=== PATIENT | female | born 1990 | race Caucasian/White ===

== ENCOUNTER 2019-09-26 23:12 | Emergency (ER) | payer MEDICAID ==
[~2019-09-26] VITALS: Ht 172.7 cm; Wt 65.9 kg
[2019-09-26 23:14] VITALS: BP 122/92
== END 2019-09-26 23:43 | disposition left against medical advice (07) ==
LOC: EMS 23:12
DX: F17.210 Nicotine dependence, cigarettes, uncomplicated (principal); Z53.21 Procedure and treatment not carried out due to patient leaving prior to being seen by health care provider

== ENCOUNTER 2020-03-23 09:51 | Emergency (ER) | payer MEDICAID ==
[~2020-03-23] VITALS: Ht 172.7 cm; Wt 68.2 kg
[2020-03-23 11:30] VITALS: BP 131/84
== END 2020-03-23 11:39 | disposition home or self-care (01) ==
LOC: EMS 09:59
DX: T16.1XXA Foreign body in right ear, initial encounter (principal); H60.91 Unspecified otitis externa, right ear; F12.90 Cannabis use, unspecified, uncomplicated; F19.90 Other psychoactive substance use, unspecified, uncomplicated; F17.210 Nicotine dependence, cigarettes, uncomplicated; W45.8XXA Other foreign body or object entering through skin, initial encounter; Y93.89 Activity, other specified; Y92.89 Other specified places as the place of occurrence of the external cause; Y99.8 Other external cause status
CPT/HCPCS: 69200; 99284; Z7502